=== PATIENT | female | born 1990 ===

== ENCOUNTER 2017-01-21 18:46 | Emergency (ER) | payer SELFPAY ==
[2017-01-21 19:44] LABS: URINE BILIRUBIN NEGATIVE (NEGATIVE); URINE BLOOD 3+ (NEGATIVE); URINE GLUCOSE (UA) NEGATIVE (NEGATIVE); URINE LEUKOCYTE ESTERASE TRACE (NEGATIVE); URINE NITRITE POSITIVE (NEGATIVE); URINE PROTEIN TRACE (NEGATIVE); URINE UROBILINOGEN NORMAL (0-1 mg/dl)
[2017-01-21 19:46] LABS: ABSOLUTE NEUTROPHIL COUNT 4.4 K/mm3 (1.8-7.7); BASO # 0.1 K/mm3 (0.0-0.2); BASO % 1.1 % (0.2-1.0); EOS # 0.1 (0.0-0.5); EOS % 1.1 % (0.9-2.9); HEMATOCRIT 45.9 % (37.0-47.0); HEMOGLOBIN 15.2 gm/l (12.0-16.0); IMM NEUT # 0.1 K/mm3 (0-0.2); IMM NEUT% 0.9 % (0-1); LYMPH # 1.6 (1.0-4.8); LYMPH % 23.6 % (15-45); MEAN CELL VOLUME 86.6 fl (81.0-99.0); MEAN CORPUSCULAR HEMOGLOBIN 28.7 pg (27.0-31.0); MEAN CORPUSCULAR HGB CONC 33.1 g/dl (33.0-37.0); MEAN PLATELET VOLUME 9.9 fl (7.4-10.4); MONO # 0.5 (0.0-0.8); MONO % 7.7 % (4-12); NEUT % 65.6 % (43-75); PLATELET COUNT 316 K/mm3 (130-400); RED CELL DISTRIBUTION WIDTH 12.9 % (11.5-14.5)
[2017-01-21 19:46] LABS: URINE APPEARANCE SL CLOUDY; URINE COLOR DARK YELLOW
[2017-01-21 20:00] LABS: HCG,QUALITATIVE URINE NEGATIVE
[2017-01-21 20:06] LABS: I-STAT CREATININE 0.5 mg/dL (0.6-1.3)
[2017-01-21] MEDS ORDERED: HYDROMORPHONE HCL 1 MG/ML SYRINGE ONE (20:12)
[2017-01-21 20:29] LABS: URINE AMORPHOUS SEDIMENT MODERATE; URINE BACTERIA 3+; URINE MUCUS 2+
--- NOTE | 2017-01-21 20:32 | US ---
Clinical indication: Pelvic pain. Technique: Transabdominal pelvic sonography was performed.To better visualize the endometrium and adnexa transvaginal sonography was performed. Comparison: None Findings: Uterus: The uterus is anteverted. The echotexture is heterogeneous. The uterus measures 8.0 x 4.2 x 5.9 centimeters. There is significant heterogeneity in the posterior uterine fundus. Considerable vascularity is noted. Endometrial thickness: 9 millimeters. Slight apparent thickening is noted. There is a intrauterine device within the lower uterine segment. This is positioned proximally. Adnexa: Right ovary: 3.6 x 1.4 x 3.7 centimeters. There is Doppler flow Left ovary: 2.6 x 1.3 x 1.4 centimeters. There is Doppler flow. Cul-de-sac fluid: Small amount of uncomplicated fluid is noted. IMPRESSION: 1. Intrauterine device within the lower uterine segment. 2. Moderate vascularity of the myometrium near the uterine fundus. Findings may reflect adenomyosis or possible changes of endometritis. Currently no discrete lesion is identified. 3. No worrisome adnexal masses are detected. Findings were discussed with Dr. Mcdermott at 8:28 PM 01/21/2017
[2017-01-21] MEDS ORDERED: CEFTRIAXONE 1 GRAM DUPLEX 50 ML IV ONE (21:05)
[2017-01-21] MEDS ORDERED: AZITHROMYCIN 250 MG TABLET ONE (21:06)
[2017-01-22 15:44] LABS: CHLAMYDIA BD Negative (Negative); N.GONORRHOEAE BD Negative (Negative); SOURCE Urine (())
[2017-01-22 17:28] LABS: ALB/GLOB RATIO 1.2 (>1.0); ALBUMIN 4.1 gm/dL (3.5-5.7); CALCIUM 9.3 mg/dL (8.6-10.3)
== END 2017-01-21 22:03 | disposition home or self-care (01) ==
LOC: ED 18:46
DX: N73.9 Female pelvic inflammatory disease, unspecified (principal); Z79.899 Other long term (current) drug therapy; Z88.8 Allergy status to other drugs, medicaments and biological substances
CPT/HCPCS: 87491; 87591; 81025; 85025; 80053; 81001; 76856; 76830; 96375; 99284; 96365; 99283; J1170; A9270; J0696